=== PATIENT | male | born 1995 | race Caucasian/White ===

== ENCOUNTER 2019-06-18 13:37 | Emergency (ER) | payer OTHER ==
[2019-06-18] MEDS ORDERED: Sodium Chloride 0.9% 10 ML Syringe FLUSH PRN (13:39)
[2019-06-18] MEDS ORDERED: LORazepam 2 MG/ML SDV IVPUSH ONE (13:45)
[2019-06-18] MEDS ORDERED: Sodium Chloride 0.9% 1,000 ML IV ONE ×2 (13:46→17:14)
--- NOTE | 2019-06-18 13:53 | EDM.PDOC ---
ED HPI GENERAL MEDICAL PROBLEM - General Chief Complaint: Cardiovascular Problem Time Seen by Provider: 06/18/19 13:48 Source of Information: Reports: Patient, Other (Co-worker) History Limitations: Reports: No Limitations - History of Present Illness INITIAL COMMENTS - FREE TEXT/NARRATIVE: Presents with palpitations, dizziness and left arm tingling x 2 hours. Denies chest pain. Similar symptoms intermittently x 2 months, has had work up by PMD ( Dr. Rowe, [place]), no etiology found. Holter monitor was normal per patient. There is no FMHx of early CA or sudden . Onset Date: 06/18/19 Onset Time: 12:00 Duration: Hour(s): (2) Severity: Moderate - Related Data Allergies Allergy/AdvReac Type Severity Reaction Status Date / Time Sulfa (Sulfonamide Allergy Cannot Verified 06/18/19 15:11 Antibiotics) Remember Home Meds: Home Meds Metoprolol Succinate [Toprol XL 50mg] 50 mg PO DAILY #30 tab.er 06/18/19 [Rx] Past Medical History Cardiovascular History: Reports: Hypertension. Denies: Blood Clots/VTE/DVT, CAD , CA Social & Family History - Tobacco Use Smoking Status *Q: Never Smoker - Alcohol Use Alcohol Use History: Yes Alcohol Use in Last Twelve Months: Yes Alcohol Use Frequency: Socially - Recreational Drug Use Recreational Drug Use: No ED ROS GENERAL - Review of Systems Review Of Systems: ROS reveals no pertinent complaints other than HPI. ED EXAM, GENERAL - Physical Exam Exam: See Below Exam Limited By: No Limitations General Appearance: Alert, WD/WN, No Apparent Distress Ears: Normal External Exam Nose: Normal Inspection Throat/Mouth: No Airway Compromise Head: Atraumatic, Normocephalic Neck: Full Range of Motion Respiratory/Chest: No Respiratory Distress, Lungs Clear, Normal Breath Sounds Cardiovascular: Regular Rate, Rhythm, No Edema, No Gallop, No Murmur, Tachycardia GI/Abdominal: No Distention Extremities: Normal Range of Motion, No Pedal Edema Neurological: Alert, Oriented, CN II-XII Intact, Normal Cognition, No Motor/ Sensory Deficits Psychiatric: Normal Affect Skin Exam: Warm, Dry, Intact EKG INTERPRETATION EKG Date: 06/18/19 Time: 13:47 Rhythm: Other (sinus tachycardia) Rate (Beats/Min): 107 [place]: Normal ST-T: Other (borderline T abnormality) QT: Normal Comparison: No Change (04/27/19) EKG Interpretation Comments: EKG #2: NSR @86 bpm, early repolarization ST elevation (No change 04/27/19, [facility]). Course - Vital Signs Last Recorded V/S: Last Vital Signs Temp 36.4 C 06/18/19 13:45 Pulse 93 06/18/19 17:23 Resp 16 06/18/19 13:45 BP 149/86 H 06/18/19 17:23 Pulse Ox 98 06/18/19 13:45 - Orders/Labs/Meds Orders: Active Orders 24 hr Category Date Time Status EKG Documentation Completion [RC] ASDIRECTED Care 06/18/19 13:39 Active EKG Documentation Completion [RC] ASDIRECTED Care 06/18/19 16:13 Active CXR [Chest 1V Frontal] [CR] Stat Exams 06/18/19 13:39 Taken Sodium Chloride 0.9% [Normal Saline] 1,000 ml Med 06/18/19 17:14 Active IV .BOLUS Sodium Chloride 0.9% [Saline Flush] Med 06/18/19 13:39 Active 10 ml FLUSH ASDIRECTED PRN Saline Lock Insert [OM.PC] Routine Oth 06/18/19 13:39 Ordered EKG 12 Lead [EK] Stat Ther 06/18/19 13:39 Ordered EKG 12 Lead [EK] Stat Ther 06/18/19 16:13 Ordered Medication Orders Sodium Chloride (Normal Saline) 1,000 mls @ 999 mls/hr IV .BOLUS ONE Stop: 06/18/19 18:14 Last Admin: 06/18/19 17:16 Dose: 999 mls/hr Sodium Chloride (Saline Flush) 10 ml FLUSH ASDIRECTED PRN PRN Reason: Keep Vein Open Labs: Laboratory Tests 06/18/19 06/18/19 06/18/19 Range/Units 13:45 13:55 13:55 WBC 7.5 (4.5-12.0) X10-3/uL RBC 5.29 (4.30-5.75) x10(6)uL Hgb 15.9 (13.5-17.8) g/dL Hct 46.3 (30.0-51.3) % MCV 87.5 (80-96) fL MCH 30.0 (27.7-33.6) pg MCHC 34.2 (32.2-35.4) g/dL RDW 11.7 (11.5-15.5) % Plt Count 287 (125-369) X10(3)uL MPV 7.8 (7.4-10.4) fL Neut % (Auto) 63.2 (46-82) % Lymph % (Auto) 25.4 (13-37) % [place] % (Auto) 7.8 (4-12) % Eos % (Auto) 3 (1.0-5.0) % Baso % (Auto) 1 (0-2) % Neut # (Auto) 4.8 (1.6-8.3) # Lymph # (Auto) 1.9 (0.6-5.0) # [place] # (Auto) 0.6 (0.0-1.3) # Eos # (Auto) 0.2 (0.0-0.8) # Baso # (Auto) 0.0 (0.0-0.2) # PT 9.9 (8.7-11.1) INR 1.02 (0.89-1.13) APTT 24.4 (24.4-33.2) SECONDS D-Dimer, Quantitative 0.39 (0.0-0.59) mg/LFEU Sodium 141 (135-145) mmol/L Potassium 3.8 (3.5-5.3) mmol/L Chloride 102 (100-110) mmol/L Carbon Dioxide 29 (21-32) mmol/L BUN 12 (7-18) mg/dL Creatinine 1.0 (0.70-1.30) mg/dL Est Cr Clr Drug Dosing TNP Estimated GFR (MDRD) > 60 (>60) BUN/Creatinine Ratio 12.0 (9-20) Glucose 109 (80-116) mg/dL Calcium 9.2 (8.6-10.2) mg/dL Total Bilirubin 0.3 (0.1-1.3) mg/dL AST 21 (5-25) IU/L ALT 47 H (12-36) U/L Alkaline Phosphatase 80 (56-112) IU/L Troponin I (<0.017-0.056) ng/mL Total Protein 8.3 H (6.0-8.0) g/dL Albumin 4.3 (3.5-5.2) g/dL Globulin 4.0 g/dL Albumin/Globulin Ratio 1.1 TSH, Ultra Sensitive (0.36-3.74) IU/mL Urine Color (YELLOW) Urine Appearance (CLEAR) Urine pH (5.0-6.5) Ur Specific [place] (1.010-1.025) Urine Protein (NEGATIVE) mg/dL Urine Glucose (UA) (NORMAL) mg/dL Urine Ketones (NEGATIVE) mg/dL Urine Occult Blood (NEGATIVE) Urine Nitrite (NEGATIVE) Urine Bilirubin (NEGATIVE) Urine Urobilinogen (NEGATIVE) mg/dL Ur Leukocyte Esterase (NEGATIVE) Urine RBC (0-5) Urine WBC (0-5) Ur Squamous Epith Cells (NS,R,O) Urine Bacteria (NS) 06/18/19 06/18/19 06/18/19 Range/Units 13:55 13:55 14:05 WBC (4.5-12.0) X10-3/uL RBC (4.30-5.75) x10(6)uL Hgb (13.5-17.8) g/dL Hct (30.0-51.3) % MCV (80-96) fL MCH (27.7-33.6) pg MCHC (32.2-35.4) g/dL RDW (11.5-15.5) % Plt Count (125-369) X10(3)uL MPV (7.4-10.4) fL Neut % (Auto) (46-82) % Lymph % (Auto) (13-37) % [place] % (Auto) (4-12) % Eos % (Auto) (1.0-5.0) % Baso % (Auto) (0-2) % Neut # (Auto) (1.6-8.3) # Lymph # (Auto) (0.6-5.0) # [place] # (Auto) (0.0-1.3) # Eos # (Auto) (0.0-0.8) # Baso # (Auto) (0.0-0.2) # PT (8.7-11.1) INR (0.89-1.13) APTT (24.4-33.2) SECONDS D-Dimer, Quantitative (0.0-0.59) mg/LFEU Sodium (135-145) mmol/L Potassium (3.5-5.3) mmol/L Chloride (100-110) mmol/L Carbon Dioxide (21-32) mmol/L BUN (7-18) mg/dL Creatinine (0.70-1.30) mg/dL Est Cr Clr Drug Dosing Estimated GFR (MDRD) (>60) BUN/Creatinine Ratio (9-20) Glucose (80-116) mg/dL Calcium (8.6-10.2) mg/dL Total Bilirubin (0.1-1.3) mg/dL AST (5-25) IU/L ALT (12-36) U/L Alkaline Phosphatase (56-112) IU/L Troponin I < 0.017 L (<0.017-0.056) ng/mL Total Protein (6.0-8.0) g/dL Albumin (3.5-5.2) g/dL Globulin g/dL Albumin/Globulin Ratio TSH, Ultra Sensitive 1.42 (0.36-3.74) IU/mL Urine Color Yellow (YELLOW) Urine Appearance Clear (CLEAR) Urine pH 5.0 (5.0-6.5) Ur Specific [place] 1.015 (1.010-1.025) Urine Protein Negative (NEGATIVE) mg/dL Urine Glucose (UA) Normal (NORMAL) mg/dL Urine Ketones Negative (NEGATIVE) mg/dL Urine Occult Blood Negative (NEGATIVE) Urine Nitrite Negative (NEGATIVE) Urine Bilirubin Negative (NEGATIVE) Urine Urobilinogen Normal (NEGATIVE) mg/dL Ur Leukocyte Esterase Negative (NEGATIVE) Urine RBC Not seen (0-5) Urine WBC 0-5 (0-5) Ur Squamous Epith Cells Few H (NS,R,O) Urine Bacteria Few H (NS) 06/18/19 Range/Units 15:50 WBC (4.5-12.0) X10-3/uL RBC (4.30-5.75) x10(6)uL Hgb (13.5-17.8) g/dL Hct (30.0-51.3) % MCV (80-96) fL MCH (27.7-33.6) pg MCHC (32.2-35.4) g/dL RDW (11.5-15.5) % Plt Count (125-369) X10(3)uL MPV (7.4-10.4) fL Neut % (Auto) (46-82) % Lymph % (Auto) (13-37) % [place] % (Auto) (4-12) % Eos % (Auto) (1.0-5.0) % Baso % (Auto) (0-2) % Neut # (Auto) (1.6-8.3) # Lymph # (Auto) (0.6-5.0) # [place] # (Auto) (0.0-1.3) # Eos # (Auto) (0.0-0.8) # Baso # (Auto) (0.0-0.2) # PT (8.7-11.1) INR (0.89-1.13) APTT (24.4-33.2) SECONDS D-Dimer, Quantitative (0.0-0.59) mg/LFEU Sodium (135-145) mmol/L Potassium (3.5-5.3) mmol/L Chloride (100-110) mmol/L Carbon Dioxide (21-32) mmol/L BUN (7-18) mg/dL Creatinine (0.70-1.30) mg/dL Est Cr Clr Drug Dosing Estimated GFR (MDRD) (>60) BUN/Creatinine Ratio (9-20) Glucose (80-116) mg/dL Calcium (8.6-10.2) mg/dL Total Bilirubin (0.1-1.3) mg/dL AST (5-25) IU/L ALT (12-36) U/L Alkaline Phosphatase (56-112) IU/L Troponin I < 0.017 L (<0.017-0.056) ng/mL Total Protein (6.0-8.0) g/dL Albumin (3.5-5.2) g/dL Globulin g/dL Albumin/Globulin Ratio TSH, Ultra Sensitive (0.36-3.74) IU/mL Urine Color (YELLOW) Urine Appearance (CLEAR) Urine pH (5.0-6.5) Ur Specific [place] (1.010-1.025) Urine Protein (NEGATIVE) mg/dL Urine Glucose (UA) (NORMAL) mg/dL Urine Ketones (NEGATIVE) mg/dL Urine Occult Blood (NEGATIVE) Urine Nitrite (NEGATIVE) Urine Bilirubin (NEGATIVE) Urine Urobilinogen (NEGATIVE) mg/dL Ur Leukocyte Esterase (NEGATIVE) Urine RBC (0-5) Urine WBC (0-5) Ur Squamous Epith Cells (NS,R,O) Urine Bacteria (NS) Meds: Medications Generic Name Dose Route Start Last Admin Trade Name Freq PRN Reason Stop Dose Admin Sodium Chloride 1,000 mls @ 999 mls/hr 06/18/19 17:14 06/18/19 17:16 Normal Saline IV 06/18/19 18:14 999 mls/hr .BOLUS ONE Administration Sodium Chloride 10 ml 06/18/19 13:39 Saline Flush FLUSH ASDIRECTED PRN Keep Vein Open Discontinued Medications Generic Name Dose Route Start Last Admin Trade Name Freq PRN Reason Stop Dose Admin Hydralazine HCl 10 mg 06/18/19 16:34 06/18/19 16:39 Apresoline IVPUSH 06/18/19 16:35 10 mg ONETIME ONE Administration Sodium Chloride 1,000 mls @ 999 mls/hr 06/18/19 13:46 06/18/19 14:25 Normal Saline IV 06/18/19 14:46 999 mls/hr .BOLUS ONE Administration Lorazepam 1 mg 06/18/19 13:45 06/18/19 14:27 Ativan IVPUSH 06/18/19 13:46 1 mg ONETIME ONE Administration Metoprolol Succinate 50 mg 06/18/19 17:14 06/18/19 17:23 Toprol Xl PO 06/18/19 17:15 50 mg ONETIME ONE Administration Metoprolol Tartrate 5 mg 06/18/19 14:51 06/18/19 15:00 Lopressor IVPUSH 06/18/19 14:52 5 mg ONETIME ONE Administration - Radiology Interpretation Free Text/Narrative:: CXR: No evidence of cardiopulmonary disease. - Re-Assessments/Exams Free Text/Narrative Re-Assessment/Exam: 06/18/19 17:35 Palpitations have resolved, patient still feels dizzy. BP 149/86, HR 94, RR18, Sa02 100%RA after 1.5L NS, Lopressor 5mg IV, and Hydralazine 10mg IV. Patient remained in NSR w/o ectopy throughout ED stay. Departure - Departure Time of Disposition: 17:38 Disposition: Home, Self-Care 01 Condition: Good Clinical Impression: Lightheadedness, Palpitations Hypertension Qualifiers: Hypertension type: essential hypertension Qualified Code(s): I10 - Essential ( primary) hypertension Prescriptions: Metoprolol Succinate [Toprol XL 50mg] 50 mg PO DAILY #30 tab.er Instructions: Palpitations, [id number], Hypertension, [id number], Dizziness Referrals: Quita Rowe [Physician] - 3 Days Forms: ED Department Discharge, ED Return to Work/School Form Additional Instructions: Fill the prescription for Toprol XL and take as directed. Continue Amlodipine. Rest, drink plenty of fluids. Follow up with your primary physician in 4 days. Return to the ER if symptoms worsen. - My Orders Last 24 Hours: My Active Orders 06/18/19 13:39 EKG Documentation Completion [RC] ASDIRECTED CXR [Chest 1V Frontal] [CR] Stat Sodium Chloride 0.9% [Saline Flush] 10 ml FLUSH ASDIRECTED PRN Saline Lock Insert [OM.PC] Routine EKG 12 Lead [EK] Stat 06/18/19 16:13 EKG Documentation Completion [RC] ASDIRECTED EKG 12 Lead [EK] Stat 06/18/19 17:14 Sodium Chloride 0.9% [Normal Saline] 1,000 ml IV .BOLUS - Assessment/Plan Last 24 Hours: My Active Orders 06/18/19 13:39 EKG Documentation Completion [RC] ASDIRECTED CXR [Chest 1V Frontal] [CR] Stat Sodium Chloride 0.9% [Saline Flush] 10 ml FLUSH ASDIRECTED PRN Saline Lock Insert [OM.PC] Routine EKG 12 Lead [EK] Stat 06/18/19 16:13 EKG Documentation Completion [RC] ASDIRECTED EKG 12 Lead [EK] Stat 06/18/19 17:14 Sodium Chloride 0.9% [Normal Saline] 1,000 ml IV .BOLUS
[2019-06-18] MEDS ORDERED: Metoprolol Tartrate 5 MG/5 ML SDV IVPUSH ONE (14:51)
[2019-06-18] MEDS ORDERED: hydrALAZINE 20 MG/ML SDV IVPUSH ONE (16:34)
[2019-06-18] MEDS ORDERED: Metoprolol Succinate 50 MG Tab.ER PO ONE (17:14)
== END 2019-06-18 18:00 | disposition home or self-care (01) ==
LOC: FB.ED 13:37
DX: I10 Essential (primary) hypertension (principal); R00.2 Palpitations; Z88.2 Allergy status to sulfonamides
CPT/HCPCS: 36415; 71045; 80053; 81001; 84443; 84484; 85025; 85379; 85610; 85730; 93005; 96361; 96374; 96375; 99285; A9270; J0360; J2060; J3490; J7030